=== PATIENT | male | born 1985 | race African-American/Black ===

== ENCOUNTER 2019-03-05 02:21 | Emergency (ER) | payer MEDICAID, OTHER ==
[~2019-03-05] VITALS: Ht 175.3 cm; Wt 89.0 kg
[2019-03-05] MEDS ORDERED: KETOROLAC 30MG/ML VIAL IV STA (02:46)
[2019-03-05] MEDS ORDERED: VISCOUS LIDOCAINE 2% 15 ML UDC PO ONE (03:00)
[2019-03-05] MEDS ORDERED: MAGNESIUM/ALUMINUM HYDROXIDE/SIMETHICONE 30ML UDC PO ONE (03:00)
[2019-03-05] MEDS ORDERED: ASPIRIN 81MG TABLET PO ONE (03:00)
[2019-03-05 03:09] LABS: EOSINOPHILS % 3.4 % (0.0-5.0); HEMATOCRIT. 37.3 % (42.0-52.0); HEMOGLOBIN. 12.9 g/dL (14.0-18.0); LYMPHOCYTES % 60.1 % (20.0-50.0); MEAN CORPUSCULAR HEMOGLOBIN 28.3 pg (28.0-32.0); MEAN CORPUSCULAR VOLUME 81.7 fL (80.0-94.0); MEAN PLATELET VOLUME 8.3 fl (7.4-10.4); MONOCYTES % 6.2 % (2.0-8.0); NEUTROPHILS % 29.3 % (40.0-76.0); PLATELET 224 x1000/uL (130-400); RED BLOOD CELL COUNT 4.56 mill/uL (4.7-6.1); RED CELL DISTRIBUTION WIDTH 14.2 % (11.6-14.6)
[2019-03-05 03:11] LABS: CHLORIDE 110 mEq/L (98-107)
[2019-03-05] MEDS ORDERED: HYDRALAZINE 20MG/ML VIAL IV ONE (03:45)
[2019-03-05 05:05] VITALS: BP 120/81
== END 2019-03-05 05:07 | disposition home or self-care (01) ==
LOC: ER 02:21
DX: K21.9 Gastro-esophageal reflux disease without esophagitis (principal); R07.89 Other chest pain; Z90.49 Acquired absence of other specified parts of digestive tract
CPT/HCPCS: 36415; 71045; 80053; 83690; 83880; 84484; 85025; 93005; 96374; 99284; J1885